=== PATIENT | female | born 1970 | race Caucasian/White ===

== ENCOUNTER → 2018-12-25 17:56 | Outpatient (CLI) | payer BC, SELFPAY | PROVIDERS: PCP Emergency Medicine; Visit Provider Emergency Medicine | DX: R40.0 Somnolence (principal); R53.83 Other fatigue; G47.33 Obstructive sleep apnea (adult) (pediatric) | CPT/HCPCS: 95806 ==

== ENCOUNTER → 2019-03-25 08:47 | Outpatient (CLI) | payer BC, SELFPAY ==
--- NOTE | 2019-03-25 08:51 | MM_ITS ---
PROCEDURE: MM DIG SCREENING MAMM BI W/CAD CLINICAL INDICATION: screening There is no personal or family history of breast cancer. COMPARISON: mammogram from 07/07/2008 MAMM DIGITAL BILAT SCREEN from 04/27/2010 DIGITAL BILATERAL SCREENING from 07/10/2012 TECHNIQUE: Standard CC and MLO images were obtained. R2 CAD reviewed. FINDINGS: Scattered fibroglandular densities are seen throughout both breasts. Findings are fairly symmetrical bilaterally. There are few benign-appearing microcalcifications right breast. There is no suspicious lesion in either breast and no suspicious microcalcifications. IMPRESSION: Fibrofatty parenchyma with no suspicious lesions seen BI-RAD Category: 2 Benign Finding(s) FOLLOW-UP: 1YR 1 Year Follow-up (A letter has been sent to the patient regarding results of the study.) Dictated by: Dr. Fidencio Panda MD 03/30/2019 14:[address] Fidencio Panda MD in [place] 03/30/2019 14:41
--- NOTE | 2019-03-25 08:51 | US_ITS ---
PROCEDURE: US TRANSVAGINAL CLINICAL INDICATION: Heavy uterine bleeding difficulty voiding COMPARISON: No exams were available for comparison FINDINGS: Prominent nabothian cyst is at 3 x 2 cm. Other smaller nabothian cysts are also noted The uterus is 10 x 8 x 6 cm with a combined endometrial thickness of 6 mm. There is a 3 x 2 cm fibroid in the anterior aspect of the uterus and a 3.6 x 1.8 cm fibroid in the posterior aspect of the body of the uterus. Right ovary is 2.82.4 cm the left ovary is 3.62.9 cm. There is a 1.4 cm right ovarian cyst. No cul-de-sac fluid evident. IMPRESSION: Enlarged uterus with fibroid involvement and prominent nabothian cysts Dictated by: Serg Duarte MD 03/25/2019 18:58 Electronically signed by Serg Duarte MD in [place] 03/25/2019 18:58
== END ==
PROVIDERS: PCP Emergency Medicine; Visit Provider Nurse Practitioner Family
DX: Z12.31 Encounter for screening mammogram for malignant neoplasm of breast (principal); N92.0 Excessive and frequent menstruation with regular cycle
CPT/HCPCS: 76830; 77067

== ENCOUNTER → 2019-05-26 17:51 | Outpatient (CLI) | payer BC, SELFPAY ==
[2019-05-26 18:17] LABS: Basophils # 0.1 K/mm3 (0-0.2); Basophils % 0.5 % (0.1-2.0); Eosinophils # 0.3 K/mm3 (0.0-0.4); Eosinophils % 2.2 % (0.1-12.0); Hematocrit 39.6 % (37.0-47.0); Hemoglobin 12.4 g/dL (12.2-16.2); Lymphocytes % 23.3 % (10-50); Mean Corpuscular HGB Conc 31.2 g/dL (31.8-35.4); Mean Corpuscular Hemoglobin 27.8 pg (27.0-31.2); Mean Corpuscular Volume 89.1 fl (81-99); Mean Platelet Volume 7.7 fl (7.4-10.4); Monocytes # 0.7 K/mm3 (0.1-1.0); Monocytes % 5.4 % (1.7-9.3); Neutrophils # 8.8 K/mm3 (1.8-7.8); Neutrophils % 68.6 % (37.0-80.0); Platelet Count 322 K/mm3 (142-424); Red Blood Count 4.45 M/mm3 (4.20-5.40); Red Cell Distribution Width 15.6 % (11.5-17.5); White Blood Count 12.8 K/mm3 (4.8-10.8)
--- NOTE | 2019-05-26 18:40 | ECG_ITS ---
APPROVED REPORT Exam: Resting ECG HR:76 bpm ECG Measurements Heart Rate 76 AXES [place] 180 P 36 QRSd 84 QRS 18 QT 388 T 24 QTc 436 <Conclusion> Normal sinus rhythm Normal ECG Electronically signed by : Rogelio Bassett, 05/31/2019 07:53:36
[2019-05-26 19:45] LABS: Anion Gap 11.6 mEq/L (5-15); Blood Urea Nitrogen 16 mg/dL (7-18); Calcium 8.9 mg/dL (8.5-10.1); Carbon Dioxide 31 mmol/L (21.0-32.0); Chloride 107 mmol/L (98-107); Creatinine,Serum 0.88 mg/dL (0.55-1.02); Estimated Glomerular Filt Rate 69 ml/min (>60); GFR (African American) 83 ML/MIN (>60); Glucose 65 mg/dL (74-106); Potassium 4.6 mmoL/L (3.5-5.1); Sodium 145 mmol/L (137-145)
[2019-05-26 19:59] LABS: HCG Qualitative, Serum Negative (Negative)
== END ==
PROVIDERS: Visit Provider Nurse Practitioner Obstetrics & Gynecology
DX: Z01.818 Encounter for other preprocedural examination (principal); N92.0 Excessive and frequent menstruation with regular cycle; R10.2 Pelvic and perineal pain; D25.9 Leiomyoma of uterus, unspecified
CPT/HCPCS: 36415; 80048; 84703; 85025; 93005

== ENCOUNTER 2019-05-27 05:56 | Observation (INO) ==
--- NOTE | 2019-05-27 08:05 | Progress Note ---
[facility] Anesthesia Checklist - Structural Data Admitted From: Home Planned Operative Procedure/s: [facility] Consent for Planned Operative Procedure(s) Verified: Yes - Additional verifications Anesthesia Reactions: No Hx Blood Transfusions: No Blood Transfusion Reaction: No - Airway Assessment C-Spine Mobility Assessed: Yes TMJ Mobility Assessed: Yes Dentition: Good Dentition - Neurological Assessment Level of Consciousness: Awake, Alert, Appropriate - Anesthesia Plan Anesthesia Risk discussed: Yes Anesthesia Plan: Verified ASA Class: III Anesthesia Type: General [facility] History I have reviewed the patient's past medical history: Yes Medical History: Denies:: Cancer, Diabetes Mellitus Type 1, Diabetes Mellitus Type 2, Internal Pacemaker, Lung Disease, MRSA, Seizures *Have you ever received a pneumonia vaccine?: No *Have you received a flu vaccine this season?: Yes Other Medical History: Denies: Blood Transfusion Reaction Anesthesia experience/problems:: none Other Surgeries: Yes: Appendectomy, Cholecystectomy. No: Pacemaker Amputation: No Fractures: No - *Social History Smoking Status: Never smoker Alcohol Intake: never Substance Use Type: denies use *Occupational Status:: other Housing: house Household Members: family *Travel in the last 8 weeks: None Family Hx:: No significant family history
--- NOTE | 2019-05-27 09:35 | Operative Note ---
Date of procedure: 05/27/19 Pre-op Diagnosis:: Menorrhagia, fibroid uterus, uterine hypertrophy Post-op Diagnosis:: Menorrhagia, fibroid uterus, uterine hypertrophy Procedure performed:: Laparoscopically assisted vaginal hysterectomy, bilateral salpingectomy Surgeon:: Raudel Card MD Communications Department Chair(s):: Kaity Snow NATURAL RESOURCES ENGINEER:: Wang Miranda Anesthesia: GETA Estimated blood loss (mL): 150 Clinical Note:: She is a 48-year-old lady who complains of extremely heavy periods. She had an ultrasound that showed 2 fibroids. Both were about 3 cm in size. She had a previous tubal ligation. She has had vaginal deliveries. After having discussed the risks and benefits we elected to perform a laparoscopic-assisted vaginal hysterectomy and bilateral salpingectomy. Operative findings:: She had an anteverted bulky uterus that had at least 2, 3 cm fibroids. The ovaries appeared normal. There was a 2 cm cyst on the left ovary. The tubes had been previously ligated. The upper abdomen appeared normal. The rest the pelvis appeared normal. Operative note:: She was taken to the operating room where general anesthesia was found be adequate. She was prepped and draped in normal sterile fashion in the semilithotomy position. A weighted speculum was placed in the vagina and the anterior lip of the cervix was grasped with a tenaculum. A Lisa uterine manipulator was then placed within the cervical os. The balloon was insufflated. I then changed gloves. I injected 10 cc of 0.5% ropivacaine around the umbilicus and made a small incision within the umbilicus. I inserted a Veress needle into the abdominal cavity. The abdominal cavity was then insufflated with carbon dioxide gas to a pressure of 20 mmHg. I then inserted an 11 mm trocar under direct vision. I injected through and through the pubic hairline, made a small incision here and inserted a 5 mm trocar under direct vision. I identified the inferior epigastric arteries on the left side, went lateral to these and injected through and through. I then made a small incision and inserted an 11 mm trocar under direct vision. A similar 11 mm trocar was placed on the right side. The right round ligament was then grasped and cut through with harmonic scalpel. This was followed by opening up the peritoneum anteriorly to the midline. This is followed by cutting through the right utero-ovarian ligament. I used Harmonic scalpel on the coagulation mode. I then took down the posterior aspect of the broad ligament to the level of the uterosacral ligament. I then skeletonized the uterine arteries on the right side and placed hemoclips on these. Using the harmonic scalpel on coagulation mode adjacent to the cervix I then took down these uterine arteries. I then further freed up the bladder anteriorly and laterally on the right side. I then turned my attention to the left side where I grasped the left round ligament. I then cut through the left round ligament. I then took down the anterior peritoneum to the midline joining up with the other side. I further dissected the bladder off. The posterior aspect of the left broad ligament was then taken down with harmonic scalpel. I skeletonized the uterine arteries on the left side. I applied hemoclips to the uterine arteries and staying adjacent to the cervix on the right side I took down the uterine arteries with harmonic scalpel on coagulation mode. I further freed up the bladder. We then assured hemostasis. I then grasped the distal end of the right tube and using harmonic scalpel I cut along the mesosalpinx. The tube was removed through the 11 mm trocar site. This was only performed on the patient's left side. After once again assuring hemostasis we then turned our attention to the vaginal portion of the surgery. The patient was placed in the lithotomy position and a weighted speculum was placed in the vagina. The anterior and posterior lip of the cervix were grasped with Hendrix tenacula. I then injected 20 cc of 1% Xylocaine with epinephrine circumferentially about the cervix. I then circumscribed the cervix. I opened up in the posterior cul-de-sac using Henley scissors. I then placed a long weighted speculum through the defect. The left uterosacral ligament was then clamped cut and suture-ligated and tagged. This was followed by the left cardinal ligament which was clamped cut and suture-ligated. I then clamped cut and suture-ligated and tagged the right uterosacral ligament. This was followed by the right cardinal ligament which was clamped cut and suture-ligated. I then grasped the anterior vaginal mucosa and using both sharp and blunt dissection dissected off the bladder. I then opened sharply into the anterior cul-de-sac. A [place] retractor was placed through this defect. Both left and right uterine arteries were then clamped cut and suture-ligated. This freed up the uterus and it was removed through the vagina. Then inserted a short weighted speculum. Posterior cuff was then closed using running 2-0 Vicryl suture in a locked fashion. I then placed a Barrera suture u sing 0 PDS. I passed it through the vagina and the peritoneum and then through the left perirectal fascia. I then plicated across the posterior peritoneum and through the right perirectal fascia. This was then passed through the peritoneum and vagina and left to be tied at the end. I then grasped the anterior peritoneum and using 2-0 PDS suture in a pursestring fashion I closed the peritoneum. The vaginal cuff was then closed using running 0 Vicryl suture in a locked fashion from left to right from anterior to posterior. A Regalado cath was then placed in the bladder. Clear urine was seen to flow. I then changed gloves and once again insufflated the abdominal cavity with carbon dioxide gas. Hemostasis was once again assured and I rinsed the pelvis. I then sprayed [place] all around the pelvis. I let the gas out of the abdomen and once again hemostasis was assured. The secondary trochars were then removed under direct vision and the sites were hemostatic. The primary trocar and camera were removed together. No bowel was seen to follow. The 11 mm trocar sites were closed deeply with [id number] 2-0 Vicryl suture followed by running subcuticular 4-0 Monocryl suture. 5 mm trocar site was closed with subcuticular 4-0 Monocryl suture. Sterile dressings were applied. The patient tolerated procedure well and was taken to the recovery room in excellent condition. All sponge instrument and needle counts were correct. The estimated blood loss was approximately 150 cc. Condition: stable Disposition: PACU Specimens:: Uterus and fallopian tubes Complications:: None
--- NOTE | 2019-05-27 09:40 | Progress Note ---
[facility] Anesthesia Record Part I Intake, IV Amount: 2,000 Estimated blood loss (mL): 150 Urine output (mL): 100 Blood Pressure: 158/74 SaO2: 94 Pulse Rate: 89 Respiratory Rate: 12 Temperature: 98 F Patient is:: Awake, Stable Stable to PACU at:: 09:35
--- NOTE | 2019-05-27 11:02 | Pharmacy Consult Notes ---
[facility] Pharmacy VTE Monitoring - Patient Demographics Admission date: 05/27/19 Report Date: 05/27/19 Time: 11:02 Allergies/Adverse Reactions: Patient Allergies promethazine [From Phenergan] Adverse Reaction (Verified 05/27/19 06:23) Height: 1.65 m Weight: 136.078 kg - Prophylaxis VTE Prophylaxis Ordered?: Yes Types of VTE Prophylaxis: IPCS Thigh High Location of Applied Device: Bilateral Lower Extremeties - VTE Diagnosis Confirmed Treatment or plan recommended: Continue Current Treatment
[2019-05-27 16:33] LABS: Hematocrit 36.9 % (37.0-47.0); Hemoglobin 11.7 g/dL (12.2-16.2)
--- NOTE | 2019-05-27 16:50 | Progress Note ---
[facility] Anesthesia Record Part II Discharge Time: 10:05 Destination: floor PACU nurse assessment reviewed?: Yes Patient Condition:: Good Anesthesia Complications:: None Swallowing reflex intact?: Yes Cyanosis?: No Blood Pressure: 147/73 Pulse Rate: 98 Temperature: 98 F Mental Status: Alert & Oriented Pain level:: 0 Nausea and/or vomitting:: None Intake, IV Amount: 1,800
[2019-05-28 06:32] LABS: Eosinophils # 0.1 K/mm3 (0.0-0.4); Monocytes # 0.7 K/mm3 (0.1-1.0)
[2019-05-28 06:50] LABS: Anion Gap 12.1 mEq/L (5-15); Calcium 8.2 mg/dL (8.5-10.1)
[2019-05-28 06:59] LABS: Basophils % 0.2 % (0.1-2.0); Eosinophils % 0.4 % (0.1-12.0); Hematocrit 34.2 % (37.0-47.0); Lymphocytes # 2.5 K/mm3 (0.7-4.5); Lymphocytes % 16.6 % (10-50); Mean Corpuscular HGB Conc 30.5 g/dL (31.8-35.4); Mean Corpuscular Volume 89.5 fl (81-99); Mean Platelet Volume 7.9 fl (7.4-10.4); Monocytes % 4.8 % (1.7-9.3); Neutrophils # 11.6 K/mm3 (1.8-7.8); Platelet Count 285 K/mm3 (142-424); Red Blood Count 3.82 M/mm3 (4.20-5.40); Red Cell Distribution Width 15.8 % (11.5-17.5); White Blood Count 14.8 K/mm3 (4.8-10.8)
[2019-05-28 07:12] LABS: Hemoglobin 10.5 g/dL (12.2-16.2)
--- NOTE | 2019-05-28 07:17 | Pharmacy Consult Notes ---
[facility] Pharmacy VTE Monitoring - Patient Demographics Admission date: 05/27/19 Report Date: 05/28/19 Time: 07:17 Allergies/Adverse Reactions: Patient Allergies promethazine [From Phenergan] Allergy (Verified 05/27/19 11:33) Unknown allergy reaction Height: 1.65 m Weight: 136.078 kg - VTE Risk Labs: VTE Related Lab Results Hgb 10.5 g/dL (12.2-16.2) L D 05/28/19 06:10 Hct 34.2 % (37.0-47.0) L 05/28/19 06:10 Plt Count 285 K/mm3 (142-424) 05/28/19 06:10 Was VTE Risk Assessment Performed: No Clinical Trial Participant: No - Prophylaxis VTE Prophylaxis Ordered?: Yes Types of VTE Prophylaxis: IPCS Thigh High (POST OP), Pharmacological Location of Applied Device: Refused Pharmacologic Type: Enoxaparin
--- NOTE | 2019-05-28 08:28 | Discharge Summary ---
General - General Admission date:: 05/27/19 Discharge date: 05/28/19 HPI HPI: She is a 48-year-old lady who complains of extremely heavy periods. An ultrasound confirmed that she had 2 fibroids about 3 cm in size. After having discussed the risks and benefits we like to perform a laparoscopically assisted vaginal hysterectomy and bilateral salpingectomy. Hospital Course Hospital Course: On May 27, 2019 she underwent a laparoscopically assisted vaginal hysterectomy and bilateral salpingectomy. She has done well postoperatively and has remained afebrile throughout her hospitalization. She is eating and drinking and ambulating. She is voiding well. She has not had a bowel movement. She denies any chest pain, shortness of breath or calf tenderness. On examination her heart sounds are normal and her respiratory rate is normal as well as having good air entry bilaterally. Her belly is soft and her incisions are clean and dry. Her calves are supple. She is discharged home to follow-up with me in approximate 2 weeks time. She was given the usual instructions with respect to limiting her activity, driving and sexual activity. She was given a prescription for Percocet 5/325 number 20 tablets and she will take naproxen at home. She will also take a stool softener. Her condition on discharge is stable and improved. Objective Vital signs: Temp Pulse Resp BP Pulse Ox 98.1 F 73 16 137/70 100 05/28/19 08:19 05/28/19 08:19 05/28/19 08:19 05/28/19 08:19 05/28/19 08:19 no acute distress - *Routine HEENT Exam Head: Present: normocephalic Eye: Present: EOMI, PERRL ENT: Present: mucous membranes moist - *Routine Neck Exam Present: supple - *Routine Respiratory Exam Present: CTA bilaterally - *Routine Extremities Exam Absent: cyanosis, clubbing, edema Results Labs on day of discharge: Labs from last 24 hours 05/28/19 05/28/19 05/27/19 06:10 06:10 16:19 WBC 14.8 H RBC 3.82 L Hgb 10.5 L D 11.7 L Hct 34.2 L 36.9 L MCV 89.5 MCH 27.3 MCHC 30.5 L RDW 15.8 Plt Count 285 MPV 7.9 Neut % (Auto) 78.0 Lymph % (Auto) 16.6 [place] % (Auto) 4.8 Eos % (Auto) 0.4 Baso % (Auto) 0.2 Neut # (Auto) 11.6 H Lymph # (Auto) 2.5 [place] # (Auto) 0.7 Eos # (Auto) 0.1 Baso # (Auto) 0.0 Sodium 144 Potassium 4.1 Chloride 108 H Carbon Dioxide 28 Anion Gap 12.1 BUN 17 Creatinine 0.91 Estimated Creat Clear 68 Estimated GFR 66 Est GFR ( Amer) 80 Glucose 112 H Calcium 8.2 L Urine Color Urine Appearance Urine pH Ur Specific [place] Urine Protein Urine Glucose (UA) Urine Ketones Urine Blood Urine Nitrate Urine Bilirubin Urine Urobilinogen Ur Leukocyte Esterase Urine RBC Urine WBC Ur Squamous Epith Cells Ur Transition Epith Cell Urine Bacteria 05/27/19 09:00 WBC RBC Hgb Hct MCV MCH MCHC RDW Plt Count MPV Neut % (Auto) Lymph % (Auto) [place] % (Auto) Eos % (Auto) Baso % (Auto) Neut # (Auto) Lymph # (Auto) [place] # (Auto) Eos # (Auto) Baso # (Auto) Sodium Potassium Chloride Carbon Dioxide Anion Gap BUN Creatinine Estimated Creat Clear Estimated GFR Est GFR ( Amer) Glucose Calcium Urine Color Yellow Urine Appearance Clear Urine pH 5.5 Ur Specific [place] >= 1.030 Urine Protein Negative Urine Glucose (UA) Negative Urine Ketones Negative Urine Blood Trace-l Urine Nitrate Negative Urine Bilirubin Negative Urine Urobilinogen 0.2 Ur Leukocyte Esterase Negative Urine RBC 10-20 Urine WBC 5-10 Ur Squamous Epith Cells 3-5 Ur Transition Epith Cell Occ Urine Bacteria 1+ DS: Diagnosis - Discharge Diagnosis (1) Menorrhagia Status: Acute (2) Fibroid uterus Status: Acute Discharge Plan - Patient Discharge Instructions ACTIVITY: No heavy lifting DIET: continue same diet Additional Instructions: NOTHING IN THE VAGINA FOR 6 WEEKS, NO HEAVY LIFTING OR STRENUOUS ACTIVITY. Patient Instructions: How to Care for a Surgical Wound, DI for Surgical Site Infection, DI for Postoperative Pain, Hysterectomy -- Laparoscopic Surgery - Follow up Plan Follow up with: Raudel Card MD [Staff Physician] - 06/10/19 2:00 pm Disposition: Home, Self-[facility]ci Medications: Home Medications Medication Instructions Recorded Confirmed Type No Known Home Medications 12/30/18 05/27/19 History Oxycodone HCl/Acetaminophen 1 tab PO Q4-6H PRN #20 tablet 05/28/19 Rx [Percocet 5/325mg tablet] Prescriptions/Medication Reconciliation: New Oxycodone HCl/Acetaminophen [Percocet 5/325mg tablet] 1 tab PO Q4-6H PRN #20 tablet PRN Reason: Severe Pain No Action No Known Home Medications - Problem Reconciliation Problems Reviewed?: Yes
== END 2019-05-28 11:25 | disposition home or self-care (01) ==
LOC: OB 05:56 → OR 05:56
PROVIDERS: ADMIT Nurse Practitioner Obstetrics & Gynecology; ATTEND Nurse Practitioner Obstetrics & Gynecology
CPT/HCPCS: 36415; 80048; 81001; 85014; 85018; 85025; 94761; 96374; G0378; J2405

== ENCOUNTER → 2020-09-29 12:48 | Outpatient (CLI) | payer BC, SELFPAY | PROVIDERS: Visit Provider Internal Medicine Gastroenterology | DX: Z01.812 Encounter for preprocedural laboratory examination (principal); Z11.52 Encounter for screening for COVID-19; Z12.11 Encounter for screening for malignant neoplasm of colon | CPT/HCPCS: U0003 ==

== ENCOUNTER 2020-09-30 10:25 | Day surgery (SDC) | payer BC, SELFPAY ==
[2020-09-22 11:11] VITALS: BMI 49.9
[2020-09-30] VITALS (7 sets, daily range): BP systolic 104–133; BP diastolic 65–88; PULSE 63–85; RESP 18; TEMP 36.4; O2SAT 93–98
--- NOTE | 2020-09-30 10:47 | P.PN_ITS ---
[facility] Anesthesia Checklist - Patient Identification Patient Identification: Arm Band - Structural Data Admitted From: Home Planned Operative Procedure/s: Colonoscopy Consent for Planned Operative Procedure(s) Verified: Yes - NPO Status Verified Time NPO: 00:00 - Additional verifications Anesthesia Reactions: No Hx Blood Transfusions: No Blood Transfusion Reaction: No - Airway Assessment C-Spine Mobility Assessed: Yes TMJ Mobility Assessed: Yes Dentition: Good Dentition - Neurological Assessment Level of Consciousness: Awake Hx Seizures: No Numbness or tingling in extremities: No - Anesthesia Plan Anesthesia Risk discussed: Yes Anesthesia Plan: Verified ASA Class: III Anesthesia Type: MAC [facility] History I have reviewed the patient's past medical history: Yes Medical History: Reports:: Anxiety, Gastroesophageal Reflux Disease(GERD), MRSA (LEG) Denies:: Cancer, Diabetes Mellitus Type 1, Diabetes Mellitus Type 2, Internal Pacemaker, Lung Disease, Seizures *Have you ever received a pneumonia vaccine?: No *Have you received a flu vaccine this season?: Yes Other Medical History: Denies: Blood Transfusion Reaction Anesthesia experience/problems:: None Other Surgeries: Yes: Appendectomy, Cholecystectomy. No: Pacemaker Amputation: No Fractures: No - *Social History Last grade of school completed: High school graduate Smoking Status: Never smoker Alcohol Intake: never Alcohol Intake Frequency:: holidays/special occasions only Substance Use Type: denies use *Occupational Status:: employed Housing: house Household Members: family *Travel in the last 8 weeks: None Family Hx:: No significant family history
--- NOTE | 2020-09-30 11:45 | HMH.PROC ---
[facility] Procedure Note Procedure Note:: Colonoscopy Procedure Report: Colonoscopy with cold snare polypectomy Endoscopist: Marcial Newby II, MD Referring physician: SAMANTHA Brown Date of Procedure: September 30, 2020 Equipment: Olympus 190 variable stiffness pediatric colonoscope Sedation: MAC sedation Indication: Mrs. Vo is a 50-year-old female who is here for diagnostic colonoscopy. The patient recently had sharp pains in the left lower quadrant which were somewhat excruciating that began in late July. She was diagnosed with diverticulitis and placed on Levaquin and Flagyl. She did improve. She had some loose bowel movements while on this treatment. States that her bowel movements have returned to normal. She has been on a low residue diet. She does state that her maternal grandmother had colon cancer in her early to mid 60s. She does get some occasional spotting of blood from internal hemorrhoids every 3 weeks with some mild hemorrhoidal prolapse. She reports no weight loss. Her last colonoscopy was 20 years ago. Procedure: Prior to the procedure, a history and physical exam was performed, and patient's medications and allergies were reviewed. The risks, benefits and alternatives of the sedation and procedure were discussed with the patient. All questions were answered and informed consent was obtained. The patient was brought to the procedure room. Patient identification and proposed procedure were verified by the physician and the nurse. The patient was placed in a left lateral decubitus position and the scope was passed under direct vision. Throughout the procedure, the patient's blood pressure, pulse, and oxygen saturations were monitored continuously. The colonoscopy was accomplished without difficulty. The patient tolerated the procedure well. Findings: On digital rectal examination there was normal rectal tone. There were no external hemorrhoids. The colonoscope was introduced through the anal canal to the rectum and advanced to the cecum. The ileocecal valve and appendiceal orifice were identified. The scope was advanced a short distance into the ileum which appeared grossly normal. The scope was then withdrawn into the colon. There were 3 colon polyps (ascending x1 (8 mm), sigmoid x1 (5 mm) and rectum x1 (12 to 13 mm)) which were all removed via cold snare polypectomy. The remaining cecum, ascending and transverse colon and mucosa were grossly normal. There were scattered extensive diverticuli throughout the descending and sigmoid colon (LEFT colon). The rectum itself was normal. Upon retroflexion within the rectum there were grade 2 internal hemorrhoids. The preparation was excellent throughout with [place] Cbc Base Preparation Score of 9. The cecal time was 14 minutes. Impression: 1. Colonic polyps x3 2. Extensive left-sided diverticulosis 3. Grade 2 internal hemorrhoids Plan: I would encourage continued soft fiber diet and additionally recommend bulk fiber supplementation on a long-term daily maintenance basis. She did have uncomplicated diverticulitis. I will follow up the polyp histology and determine surveillance interval (3 to 5 years) based upon size of adenomatous polyps and the pathology.
== END 2020-09-30 12:38 | disposition home or self-care (01) ==
LOC: OUTP 10:28
PROVIDERS: PCP Nurse Practitioner Family; Visit Provider Internal Medicine Gastroenterology
PROC: 0DJD8ZZ Inspection of Lower Intestinal Tract, Via Natural or Artificial Opening Endoscopic (ICD-10-PCS; CPT 45378; principal; 2020-09-30 11:30)
DX: K63.5 Polyp of colon (principal); K57.30 Diverticulosis of large intestine without perforation or abscess without bleeding; K62.1 Rectal polyp; K64.1 Second degree hemorrhoids; K21.9 Gastro-esophageal reflux disease without esophagitis; F41.9 Anxiety disorder, unspecified; Z86.14 Personal history of Methicillin resistant Staphylococcus aureus infection; Z88.8 Allergy status to other drugs, medicaments and biological substances
CPT/HCPCS: 45385; J2704

== ENCOUNTER 2022-08-13 13:59 | Emergency (ER) | payer MEDICAID, SELFPAY ==
[2022-08-13 14:23] VITALS: BP 125/81; PULSE 75; RESP 16; TEMP 36.6; O2SAT 96; BMI 19.3
--- NOTE | 2022-08-13 14:23 | XR_ITS ---
FINAL REPORT CLINICAL HISTORY: fall a month ago, LT KNEE PAIN FINDINGS: LEFT KNEE Three views demonstrate no acute fracture or dislocation. There are small osteophytes along the undersurface of the patella. The joint spaces appear normal. No acute soft tissue abnormality is seen. IMPRESSION: No acute process. Reviewed, Interpreted and Dictated by Doc Fowler MD Transcribed by Carlee Cabrales Authenticated and [facility]
--- NOTE | 2022-08-13 14:23 | EXP.UTC ---
Discharge Plan Disposition Patient Disposition: Home, Self-Care Condition: Good Prescriptions Prescriptions: New naproxen 500 mg tablet 500 mg PO BID PRN (Reason: pain) Qty: 30 0RF No Action amlodipine 5 mg tablet 5 mg PO DAILY duloxetine 60 mg capsule,delayed release(DR/EC) 60 mg PO DAILY Referrals Follow up/Referrals: Damon Cain DO [Staff Physician] - See instructions Provider,Referral, MD [Primary Care Provider] - See instructions Activity Restrictions/Add. Instructions Additional Instructions/Restrictions: Rest the extremity, Use the knee immobilizer to rest your knee while at home. Elevate the extremity as tolerated while you are resting. Take naproxen for pain. I sent in a prescription to your pharmacy. Follow up with Dr. Cain (orthopedics). I put in a referral but you need to call his office and schedule an appointment. Follow up with your regular doctor. GO TO THE ER FOR ANY WORSENING SYMPTOMS Clinical Impressions Clinical Impression: Left knee pain, Instability of left knee joint Instructions Patient Instructions: DI for Knee Pain, How to Use a Knee Immobilizer Discharge ED Provider: Jorge Luis Osborn [facility] General Stated complaint: AO fell a month ago, left knee Time Seen by Provider: 08/13/22 14:22 Related Data Home Medications Medication Instructions Recorded Confirmed amlodipine 5 mg tablet 5 mg PO DAILY Hypertension 08/13/22 08/31/22 duloxetine 60 mg capsule,delayed 60 mg PO DAILY Anxiety 08/13/22 08/31/22 release Previous Rx's Medication Instructions Recorded naproxen 500 mg tablet 500 mg PO BID PRN pain #30 tabs 08/13/22 Allergies Allergy/AdvReac Type Severity Reaction Status Date / Time promethazine [From Phenergan] Allergy Unknown Verified 08/31/22 12:04 allergy reaction [facility] Disclaimer: The information contained in this section may have been updated after the patient was seen, as this information can be updated by other users. Social History Smoking Status: Never smoker alcohol intake: never substance use type: denies use current occupational status: employed Travel in the last 8 weeks: None household members: family housing: house current occupational exposures/hazards: No caffeine: Yes ROS Obtained: Yes All systems reviewed & no additional complaints except as documented Constitutional Constitutional: Denies chills and Denies fever(s) Eyes Eyes: Denies eye discharge ENT Ears, Nose, Mouth, and Throat: Denies dizziness, Denies otalgia and Denies sore throat Cardiovascular Cardiovascular: Denies chest pain Respiratory Respiratory: Denies shortness of breath, Denies chest congestion, Denies cough, Denies stridor and Denies wheezing Gastrointestinal Gastrointestingal: Denies nausea or vomiting Musculoskeletal Musculoskeletal: Reports as per HPI Integumentary/Breasts Skin/Breast: Denies rash Neurologic Neurologic: Denies dizziness and Denies paresthesias Allergic/Immunologic Allergic/Immunologic: Denies wheezing Physical Exam General General appearance: alert and in no apparent distress Head Head exam: atraumatic, normocephalic and normal inspection Eye Eye exam: Present normal appearance, PERRL and EOMI ENT ENT exam: Present normal exam, normal oropharynx, mucous membranes moist, TM's normal bilaterally and normal external ear exam Neck Neck exam: Present normal inspection, full ROM and trachea midline; Absent meningismus or lymphadenopathy Chest Chest inspection: Present normal inspection and symmetric chest wall rise; Absent tenderness Respiratory Respiratory exam: Present normal lung sounds bilaterally; Absent respiratory distress Cardiovascular Cardiovascular exam: Present regular rate and normal rhythm; Absent JVD Abdominal Exam Abdominal exam: Present soft and normal bowel sounds; Absent distention, tenderness or guard
[2022-08-13 15:12] VITALS: BP 125/80; PULSE 75; RESP 16; TEMP 36.6; O2SAT 98
== END 2022-08-13 16:13 | disposition home or self-care (01) ==
PROVIDERS: Emergency Provider Nurse Practitioner Family
DX: M25.562 Pain in left knee (principal); W19.XXXA Unspecified fall, initial encounter
CPT/HCPCS: 73562; 99204; 99212; G0463

== ENCOUNTER 2022-08-27 13:01 | Emergency (ER) | payer MEDICAID, SELFPAY ==
--- NOTE | 2022-08-27 13:04 | XR_ITS ---
FINAL REPORT CLINICAL HISTORY: pain COMPARISON: 08/13/2022 FINDINGS: LEFT KNEE: Three views of the left knee were obtained. There is no acute fracture or dislocation. There are mild degenerative changes. Visualized joint spaces are normally aligned. There is no joint effusion. Soft tissues are unremarkable. IMPRESSION: No acute bony abnormality. Reviewed, Interpreted and Dictated by Jorge Sanchez III, MD Transcribed by Catrina Serrano Authenticated and [facility]
[2022-08-27 13:15] VITALS: BP 178/102; PULSE 88; RESP 20; TEMP 36.7; O2SAT 98; BMI 35.6
--- NOTE | 2022-08-27 13:34 | EXP.UTC ---
Discharge Plan Disposition Patient Disposition: Home, Self-Care Condition: Good Prescriptions Prescriptions: No Action amlodipine 5 mg tablet 5 mg PO DAILY duloxetine 60 mg capsule,delayed release(DR/EC) 60 mg PO DAILY naproxen 500 mg tablet 500 mg PO BID PRN (Reason: pain) Qty: 30 0RF Referrals Follow up/Referrals: Damon Cain DO [Staff Physician] - See instructions Provider,Referral, [Primary Care Provider] - See instructions Activity Restrictions/Add. Instructions Additional Instructions/Restrictions: Rest the extremity, apply ice for 15 minutes as tolerated three or four times per day, Wear the irving wrap for compression, Elevate the extremity as tolerated while you are resting. Take ibuprofen for pain. I sent in a prescription to your pharmacy. Follow up with orthopedics. I put in a referral but you need to call his office and schedule an appointment. Follow up with your regular doctor. GO TO THE ER FOR ANY WORSENING SYMPTOMS Clinical Impressions Clinical Impression: Left knee pain Instructions Patient Instructions: DI for Knee Pain Discharge ED Provider: Jorge Luis Osborn [facility] General Stated complaint: AO [id number] left knee pain Mode of Arrival: Ambulatory Source of Information: Patient Limitations: No Limitations Time Seen by Provider: 08/27/22 13:34 HEENT Symptoms (Recalled from RN notes): No Resp Symptoms (Recalled from RN notes): No Skin Symptoms (Recalled from RN notes): No MS Symptoms (Recalled from RN notes): Yes Functional Status (Recalled from RN notes): WNL History of Present Illness Provider Complaint: PATIENT STATES SHE WAS STANDING ON A STOOL ON SATURDAY AND WHEN THE STOOL WOBBLES HER KNEE POPPED LOUDLY. SHE REPORTS A PREVIOUS INJURY TO THE SAME KNEE APPROX 1 MONTH AGO Related Data Home Medications Medication Instructions Recorded Confirmed amlodipine 5 mg tablet 5 mg PO DAILY Hypertension 08/13/22 08/27/22 duloxetine 60 mg capsule,delayed 60 mg PO DAILY Anxiety 08/13/22 08/27/22 release Previous Rx's Medication Instructions Recorded naproxen 500 mg tablet 500 mg PO BID PRN pain #30 tabs 08/13/22 Allergies Allergy/AdvReac Type Severity Reaction Status Date / Time promethazine [From Phenergan] Allergy Unknown Verified 09/22/20 11:15 allergy reaction Worker's Comp Is this a Worker's Comp case?: No [facility] Disclaimer: The information contained in this section may have been updated after the patient was seen, as this information can be updated by other users. Social History Smoking Status: Never smoker alcohol intake: never substance use type: denies use current occupational status: employed Travel in the last 8 weeks: None household members: family housing: house current occupational exposures/hazards: No caffeine: Yes ROS Obtained: Yes All systems reviewed & no additional complaints except as documented Constitutional Constitutional: Denies chills and Denies fever(s) Eyes Eyes: Denies eye discharge ENT Ears, Nose, Mouth, and Throat: Denies dizziness, Denies otalgia and Denies sore throat Cardiovascular Cardiovascular: Denies chest pain Respiratory Respiratory: Denies shortness of breath, Denies chest congestion, Denies cough, Denies stridor and Denies wheezing Gastrointestinal Gastrointestingal: Denies nausea or vomiting Musculoskeletal Musculoskeletal: Reports as per HPI Integumentary/Breasts Skin/Breast: Denies rash Neurologic Neurologic: Denies dizziness and Denies paresthesias Allergic/Immunologic Allergic/Immunologic: Denies wheezing Physical Exam General General appearance: alert and in no apparent distress Head Head exam: atraumatic, normocephalic and normal inspection Eye Eye exam: Present normal appearance, PERRL and EOMI ENT ENT exam: Present normal exam, normal oropharynx, mucous membranes moist, TM's normal bilater
[2022-08-27 14:25] VITALS: BP 178/102; PULSE 88; RESP 20; TEMP 36.7; O2SAT 98
== END 2022-08-27 14:27 | disposition home or self-care (01) ==
PROVIDERS: Emergency Provider Nurse Practitioner Family
DX: M25.562 Pain in left knee (principal); I10 Essential (primary) hypertension; F41.9 Anxiety disorder, unspecified; X50.1XXA Overexertion from prolonged static or awkward postures, initial encounter
CPT/HCPCS: 73562; 99212; 99214; G0463

== ENCOUNTER → 2022-10-05 23:35 | Outpatient (CLI) | payer MEDICAID, SELFPAY ==
[2022-10-05 18:14] LABS: Basophils % 0.4 % (0.1-2.0); Eosinophils # 0.2 K/mm3 (0.0-0.4); Eosinophils % 1.7 % (0.1-12.0); Hematocrit 45.5 % (37.0-47.0); Hemoglobin 14.7 g/dL (12.2-16.2); Lymphocytes % 19.2 % (10-50); Mean Corpuscular HGB Conc 32.3 g/dL (31.8-35.4); Mean Corpuscular Hemoglobin 28.9 pg (27.0-31.2); Mean Corpuscular Volume 89.5 fl (81-99); Mean Platelet Volume 9.3 fl (7.4-10.4); Monocytes # 0.8 K/mm3 (0.1-1.0); Monocytes % 7.7 % (1.7-9.3); Neutrophils # 7.2 K/mm3 (1.8-7.8); Neutrophils % 70.9 % (37.0-80.0); Platelet Count 321 K/mm3 (142-424); Red Blood Count 5.08 M/mm3 (4.20-5.40); Red Cell Distribution Width 14.6 % (11.5-17.5); White Blood Count 10.2 K/mm3 (4.8-10.8)
[2022-10-05 18:18] LABS: Alanine Aminotransferase 45 U/L (12-78); Albumin Level 4.4 g/dl (3.5-5.0); Albumin/Globulin Ratio 1.7 (1.1-1.8); Alkaline Phosphatase 99 U/L (38-126); Anion Gap 15.1 mEq/L (5-15); Aspartate Amino Transferase 38 U/L (14-36); Bilirubin,Total 0.3 mg/dl (0.2-1.3); Blood Urea Nitrogen 17 mg/dl (7-17); Calcium 9.6 mg/dl (8.4-10.2); Carbon Dioxide 29 mmol/L (22.0-30.0); Chloride 102 mmol/L (98-107); Chol/HDL Ratio 3.6 (1-3.5); Cholesterol 225 mg/dl (140-200); Estimated Glomerular Filt Rate 88 ml/min (>60); GFR (African American) 106 ML/MIN (>60); Globulin 2.6 g/dL (1.3-3.2); Glucose 69 mg/dl (74-100); HDL Cholesterol 62 mg/dl (40-60); Potassium 4.1 mmoL/L (3.5-5.1); Sodium 142 mmol/L (136-145); Triglycerides 213 mg/dl (30-150); VLDL Cholesterol 43 mg/dL (0-40)
[2022-10-05 18:29] LABS: Direct LDL Cholesterol 119.03 mg/dL (100-129)
[2022-10-05 18:35] LABS: 25-OH Vitamin D, Total 28.3 ng/mL (30-100)
[2022-10-05 18:49] LABS: Thyroid Stimulating Hormone 0.53 uIU/mL (0.465-4.68)
== END ==
PROVIDERS: PCP Nurse Practitioner Family; Visit Provider Nurse Practitioner Family
DX: I10 Essential (primary) hypertension (principal); E55.9 Vitamin D deficiency, unspecified; Z79.899 Other long term (current) drug therapy
CPT/HCPCS: 80053; 80061; 82306; 84443; 85025

== ENCOUNTER 2023-06-12 10:39 | Outpatient (CLI) | payer MEDICAID, SELFPAY ==
--- NOTE | 2023-06-12 11:03 | XR_ITS ---
FINAL REPORT CLINICAL HISTORY: R Hip pain.. COMPARISON: None FINDINGS: AP and frog leg views of the right hip were obtained. There is no prior exam for comparison. There is no acute fracture or dislocation. There is degenerative change noted in the hips, asymmetric to the right. There is medial migration of the right femoral head. Small calcifications are present in the pelvis, likely phleboliths. Soft tissues are within normal limits. IMPRESSION: Degenerative change noted in the hips, asymmetric to the right. There is medial migration of the right femoral head. Reviewed, Interpreted and Dictated by Rekha Parks MD Transcribed by Do Shepherd Authenticated and [facility]
== END 2023-06-12 23:59 ==
LOC: RAD 10:42
PROVIDERS: PCP Nurse Practitioner Family; Visit Provider Nurse Practitioner Family
DX: M25.551 Pain in right hip (principal)
CPT/HCPCS: 73502

== ENCOUNTER 2023-07-26 16:00 | Outpatient (RCR) | payer MEDICAID, SELFPAY ==
--- NOTE | 2023-07-01 14:53 | HMH.PTOPEV ---
PT Outpatient Evaluation Rehab PT Outpatient Evaluation Start: 07/01/23 12:59 Freq: Status: Active Protocol: Document 07/01/23 12:59 ANIBALTerrance (Rec: 07/01/23 14:53 LIVIER [id number]) E-signed By Cara Belle, PT Outpatient Therapy Subjective History Subjective History Pt is a 52 y/o female who reports chronic R hip pain for 20 years. 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 Pt had a right hip xray on 06/12/23 with impression of Degenerative change noted in the hips, asymmetric to the right. There is medial migration of the right femoral head. Pt reports pain is aggravated by walking and traversing stairs. Pt states her bedroom is on the second floor so she has to traverse stairs multiple times per day occasionally having to scoot on her bottom to go down the steps to avoid pain. Pt also reports pain often occurs in the morning time after sleeping but not every morning. Pt describes pain as a deep, sharp pain that occurs while at rest or while walking. Pt reports this pain can last for 1 minute or can last up to an hour. Pt also reports her hip will often lock up leading to muscle spasms of the hip while walking at times. Pt reports non-painful popping, denies clicking or catching. Pt reports her right leg often javy on her while walking, pt denies falls from this. Occupation: Caregiver Medical History: Hypoglycemia, Hypertension +FADIR on R hip New diagnosis of cancer in past 12 No months? Chief Complaint Pain,Spasms,Catches/Locks, Gives out/Unstable Symptom Type Ache,Throb,Sharp,Dull,Stabbing Symptoms Relieved By Rest/Positioning,Heat Symptoms Aggravated By Physical Activity,Twisting, Walking Current Functional Limitations Housework,Sleeping,Standing, Walking,Stairs Symptom Description Intermittent Level of pain today (0-10) 2 Pain scale - at its best (0-10) 0 Pain scale - at its worst (0-10) 10 Hip/Knee Eval Gait Observation General Gait Pattern Observation Antalgic Gait Palpation Tenderness right Knee Palpation Overall Comment hip flexor origin 2-3/4 TTP Hip Palpation Findings Tenderness MMT Hip Flexion Strength Grade 4 Good Hip Abduction Strength Grade 4 Good Hip Adduction Strength Grade 4 Good Hip Extension Strength Grade 4 Good Hip External Rotation Strength Grade 4 Good Hip Internal Rotation Strength Grade 4- Good- Knee Extension Strength Grade 5 Normal Knee Flexion Strength Grade 5 Normal ROM Hip Flexion w/Knee Flexed Active Range 115 of Motion (degrees) Hip External Rotation Active Range of 45 Motion (degrees) Hip Internal Rotation Active Range of 45 Motion (degrees) Special Tests Hip Scouring (Quadrant) Test Positive Right Lower Extremity Functional Index Activities Today, do you or would you have any difficulty at all with: a.Any of your usual work, housework or Quite a bit of difficulty school activities b. Your usual hobbies, recreational or Quite a bit of difficulty sporting activities c. Getting into or out of the bath A little bit of difficulty d. Walking between rooms A little bit of difficulty e. Putting on your shoes or socks Moderate difficulty f. Squatting A little bit of difficulty g. Lifting an object, like a bag of No difficulty groceries from the floor h. Performing light activities around No difficulty your home i. Performing heavy activities around Moderate difficulty your home j. Getting into or out of a car Moderate difficulty k. Walking 2 blocks Quite a bit of difficulty l. Walking a mile Quite a bit of difficulty m. Going up or down 10 stairs (about 1 Moderate difficulty flight of stairs) n. Standing for 1 hour Moderate difficulty o. Sitting for 1 hour A little bit of difficulty p. Running on even ground Moderate difficulty q. Running on uneven ground A little bit of difficulty r. Making sharp turns while running fast A little bit of difficulty s. Hopping A little bit of difficulty t. Rolling over in bed A little bit of difficulty LEFI Score Lower Extremity Functional Index Score 48 Outpatient Therapy Assessment Impairments Problems/Impairmments Palpation Tenderness,Impaired Strength,Impaired Walking, Impaired Household Care, Impaired Stair Climbing, Impaired Work Activities, Subjective C/O Pain,Impaired Self Care/Self Management Prognosis Rehab Potential Good Clinical Impression Consistent with Diagnosis Yes Short Term Goals Number of Weeks 3 Improve LEFI Score Yes: Improve score to 53/80 to improve overall QOL Decrease Subjective C/O Pain Yes: Improve pain at worst to 8/10 to improve overall QOL Improve Self Care/Self Management Yes Patient to be Ind w/ HEP Yes Prison Goals Number of Weeks 6 Decreased Palpation Tenderness Yes: 0-1/4 TTP of R hip flexor origin Increase Strength Yes: Improve to 5/5 grossly to assist with pain/function Improve Ability to Climb Stairs Yes: Ascend/descend 1 flight reciprocally with pain 6/10 or less Improve LEFI Score Yes: Improve score to 58-60/80 to improve overall QOL Decrease Subjective C/O Pain Yes: Improve pain at worst to 6/10 to improve overall QOL Patient to be Ind w/ Advanced HEP Yes Outpatient Therapy Plan of Care Treatment Plan May Include Therapeutic Exercise Including Home Yes Exercise Program Manual Therapy Techniques Yes Neuromuscular Re-education Yes Therapeutic Activities to Return to Yes Previous Functional/Work Level Gait Training Yes ADL/Self Care Education Yes Mechanical Traction Yes Dry Needling Yes Thermal Modalities Yes Electrical Stimulation Yes Ultrasound/Phonophoresis Yes Iontophoresis Yes Massage Yes Eval/Re-Eval Yes Frequency Times per week 2 Duration Number of Weeks 4-6 Addendums This patient is a candidate for social No or vocational rehab? Patient/Guardian verbally acknowledges Yes understanding of treatment program and consents to further treatment? Patient/Guardian verbally acknowledges Yes understanding of diagnosis, prognosis and goals for treatment? Eval Complexity PT Charges 95394 - Low Complexity Shoulder/Elbow Eval Shoulder Objective Measurements Elbow Objective Measurements PHYSICIAN CERTIFICATION: I certify the specified therapy services for Laura Vo are required, authorized, and reviewed every 30 days.
== END 2023-07-26 17:00 | disposition home or self-care (01) ==
LOC: PT 16:00
PROVIDERS: Visit Provider Nurse Practitioner Family
DX: M25.551 Pain in right hip (principal)
CPT/HCPCS: 97010; 97110; 97140; 97163

== ENCOUNTER 2023-08-12 12:45 | Outpatient (CLI) | payer MEDICAID, SELFPAY ==
--- NOTE | 2023-08-12 13:04 | MR_ITS ---
FINAL REPORT CLINICAL HISTORY: Rt Hip Pain COMPARISON: None FINDINGS: MR RIGHT HIP TECHNIQUE: Multiplanar MR without gadolinium enhancement. FINDINGS: ARTICULAR CARTILAGE: No focal defects. MARROW SIGNAL: There is mild bone marrow edema signal in the right acetabular roof with a few tiny subchondral cyst present, likely degenerative. No marrow edema is noted in the proximal femur. JOINT FLUID: Physiologic quantity. ADJACENT SOFT TISSUES: There is edema surrounding the iliopsoas tendon, consistent with tendinitis. There is also edema surrounding the gluteus medius tendon. LABRUM: Unremarkable IMPRESSION: Mild bone marrow edema in the right acetabular roof with a few tiny subchondral cysts, likely degenerative. The labrum is unremarkable in appearance. Iliopsoas and gluteus medius tendinitis. Reviewed, Interpreted and Dictated by Jagdeep Mitchell MD Transcribed by Do Shepherd Authenticated and [facility]
[2023-08-12 13:15] LABS: Blood Urea Nitrogen 23 mg/dl (7-17); Estimated Glomerular Filt Rate 75 ml/min (>60); GFR (African American) 91 ML/MIN (>60)
== END 2023-08-12 23:59 | disposition home or self-care (01) ==
LOC: RAD 12:46
PROVIDERS: PCP Nurse Practitioner Family; Visit Provider Orthopaedic Surgery
DX: M25.551 Pain in right hip (principal)
CPT/HCPCS: 36415; 73721; 82565; 84520

== ENCOUNTER 2023-09-18 08:17 | Day surgery (SDC) | payer MEDICAID, SELFPAY ==
--- NOTE | 2023-09-18 | XR_ITS ---
FINAL REPORT CLINICAL HISTORY: HIP INJ IN OR FT 3 SEC .71 mGy FINDINGS: FLUOROSCOPY LESS THAN 1 HOUR HISTORY: Fluoroscopy guidance. Fluoroscopic guidance was provided for hip injection in the OR. A single spot film was obtained. A total of 3 seconds of fluoroscopy time were used. Total DAP: 0.71 mGy IMPRESSION: As above. Reviewed, Interpreted and Dictated by Jorge Sanchez III, MD Transcribed by Lakeshia Cifuentes Authenticated and [facility]
[2023-09-18 08:37] VITALS: BMI 22.1
[2023-09-18 08:45] VITALS: BP 118/75; PULSE 73; RESP 18; TEMP 36.6; O2SAT 98
[2023-09-18] MEDS: LACTATED RINGERS 1000ML 1,000 ML 25 ML IV (08:49)
[2023-09-18] MEDS: TRIAMCINOLONE ACET 40MG/ML VIAL 80 MG (09:30)
[2023-09-18] MEDS: LIDOCAINE 1% 10ML MDV 10 ML (09:30)
[2023-09-18 09:38] VITALS: BP 96/59; PULSE 61; RESP 16; TEMP 36.5; O2SAT 95
--- NOTE | 2023-09-18 09:38 | EXP.OP.NOTE ---
Date of procedure: 09/18/23 Pre-op Diagnosis:: Right hip pain Post-op Diagnosis:: Same Procedure performed:: Right hip injection with arthrogram x-ray guidance for needle placement Surgeon:: Damon Cain DO [employer]OM[employer]IC [employer] MA[employer] MACHINE TENDER:: Alejandro Morales Anesthesia: MAC Estimated blood loss (mL): 0 Clinical Note:: 52-year-old female with impingement in the right hip and mixed intra-articular extra-articular symptoms. Presented today for therapeutic diagnostic injection right hip. Operative findings:: See dictation Operative note:: Patient is identified preoperatively. Right hip marked with yes my initials. Transferred operative suite placed supine on the radiolucent bed. Right hip was prepped and draped normal sterile fashion. X-ray machine brought in to identify the hip capsule. 18-gauge spinal needle was selected in the proper trajectory into the hip capsule. Arthrogram was performed to confirm needle placement. Once confirmed within the hip capsule injection of 80 mg of Kenalog and 3 cc of lidocaine injected into the hip joint. Needle removed. Band-Aid placed. Patient in anesthesia taken recovery stable condition Condition: stable Disposition: PACU Complications:: None apparent
[2023-09-18 09:53] VITALS: BP 98/63; PULSE 60; RESP 18; O2SAT 97
--- NOTE | 2023-09-18 10:04 | EXP.ANES.CKL ---
[facility] Disclaimer: The information contained in this section may have been updated after the patient was seen, as this information can be updated by other users. Medical History (Updated 09/18/23 @ 09:02 by Magalie Cespedes RN) COPD (chronic obstructive pulmonary disease) Osteoarthritis HTN (hypertension) Acute anxiety Depressed Diverticula of colon Surgical History (Updated 09/18/23 @ 08:59 by Magalie Cespedes RN) H/O: hysterectomy Family History (Updated 09/18/23 @ 09:02 by Magalie Cespedes RN) Other No significant family history Social History (Updated 09/18/23 @ 08:57 by Magalie Cespedes RN) Smoking Status: Never smoker alcohol intake: never substance use type: denies use current occupational status: employed Travel in the last 8 weeks: None household members: family housing: house current occupational exposures/hazards: No caffeine: Yes [facility] Anesthesia Checklist Patient Identification Patient Identification: Arm Band Structural Data Admitted From: Home Planned Operative Procedure/s: Right Hip Injection with Arthrogram Consent for Planned Operative Procedure(s) Verified: Yes Verified Documents: Surgical Consent and History and Physical NPO Status Verified Time NPO: 00:00 Additional verifications Anesthesia Reactions: No Hx Blood Transfusions: No Blood Transfusion Reaction: No Airway Assessment Mallampati Score:: Class II C-Spine Mobility Assessed: Yes TMJ Mobility Assessed: Yes Dentition: Good Dentition Neurological Assessment Level of Consciousness: Awake, Alert and Appropriate Anesthesia Plan Anesthesia Risk discussed: Yes Anesthesia Plan: Verified ASA Class: II Anesthesia Type: MAC
[2023-09-18 10:05] VITALS: BP 108/67; PULSE 62; RESP 18; O2SAT 98
== END 2023-09-18 10:08 | disposition home or self-care (01) ==
PROVIDERS: PCP Nurse Practitioner Family; Visit Provider Orthopaedic Surgery
PROC: (CPT 20610; principal; 2023-09-18 09:00)
DX: M25.851 Other specified joint disorders, right hip (principal); M16.11 Unilateral primary osteoarthritis, right hip
CPT/HCPCS: 20610; 73502; 76000; J7120

== ENCOUNTER 2023-12-13 09:19 | Outpatient (CLI) | payer MEDICAID, SELFPAY | END 2023-12-13 23:59 | disposition home or self-care (01) | LOC: LAB.DROPOF 12-16 09:19 | PROVIDERS: PCP Family Medicine; Visit Provider Family Medicine | DX: R09.89 Other specified symptoms and signs involving the circulatory and respiratory systems (principal) | CPT/HCPCS: 87635 ==

== ENCOUNTER 2024-03-26 11:00 | Outpatient (RCR) | payer MEDICAID, SELFPAY | END 2024-03-26 23:59 | disposition home or self-care (01) | LOC: PT 11:00 | PROVIDERS: Visit Provider Nurse Practitioner Family | DX: M16.11 Unilateral primary osteoarthritis, right hip (principal) | CPT/HCPCS: 97110; 97163; 97530 ==